=== PATIENT | female | born 1995 | race Caucasian/White ===

== ENCOUNTER 2017-11-05 10:33 | Emergency (ER) | payer MEDICAID ==
[~2017-11-05] VITALS: Ht 162.6 cm; Wt 57.6 kg
[2017-11-05 10:49] VITALS: BP 143/93
--- NOTE | 2017-11-05 10:49 | NUR ---
PT AMBULATED TO BED 12
--- NOTE | 2017-11-05 10:50 | NUR ---
22YO F TO ER FOR RIGHT EAR PAIN X1WK ---AWAKE ALERT AND ORIENTED TO PERSON , PLACE, TIME, AND EVENT. RINGING PAIN ; DENIES RECENT INJURY OR TRAUMA. NO DISCOLORATION OR DRAINAGE NOTED. LS CLEAR THROUGHOUT, BS ACTIVE X4 ALSO ADDS INTERMITTENT NAUSEA IN THE MORNINGS UPON AWAKENING X"MONTHS"also adds WILL CONTINUE TO MONITOR, PT POSITIONED FOR COMFORT, ER MD MADE AWARE. hx---denies rx---none--does not take control
--- NOTE | 2017-11-05 12:20 | NUR ---
Patient being evaluated by physician at bedside.
[2017-11-05 12:59] VITALS: BP 143/93
--- NOTE | 2017-11-05 13:00 | NUR ---
Patient discharged with v/s stable. Written and verbal after care instructions given and explained. Patient alert, oriented and verbalized understanding of instructions. Ambulatory with steady gait. All questions addressed prior to discharge. ID band removed. Patient advised to follow up with PMD. Rx of FLEXERIL, OTIC DROPS, AND MOTRIN given. Patient educated on indication of medication including possible reaction and side effects. Opportunity to ask questions provided and answered.
== END 2017-11-05 13:00 | disposition home or self-care (01) ==
LOC: MED 10:33
DX: B36.9 Superficial mycosis, unspecified (principal); H62.41 Otitis externa in other diseases classified elsewhere, right ear; R51 Headache; R10.13 Epigastric pain
CPT/HCPCS: 81002; 81025; 99283

== ENCOUNTER 2021-12-24 09:07 | Emergency (ER) | payer BC, OTHER ==
[~2021-12-24] VITALS: Ht 160 cm; Wt 62.1 kg
[2021-12-24 09:11] VITALS: BP 131/78
--- NOTE | 2021-12-24 09:21 | NUR ---
PT AMBULATED TO BATHROOM WITH STEADY GAIT
--- NOTE | 2021-12-24 09:40 | NUR ---
26YR OLD FEMALE BIB SELF C/O PAIN WITH URINATION X2 DAYS. FREQ/URGENCY WITH URINATION. SHARP NON BURNING PAIN. LLQ ABD PAIN TO L FLANK AREA. DENIES FEVER N/V. PAIN LEVEL 8/10. PT IS A&OX4. SKIN WARM DRY. HOB ELEVATED BED AT LOWEST POSITION. NKDA NO MED HX
[2021-12-24 10:54] LABS: APPEARANCE,URINE SL CLOUDY (CLEAR); BILIRUBIN,URINE 2+ (NEGATIVE); BLOOD, URINE NEGATIVE (NEGATIVE); COLOR,URINE ORANGE (YELLOW); LEUKOCYTE ESTERASE ,URINE NEGATIVE (NEGATIVE); NITRITE, URINE POSITIVE (NEGATIVE); PH,URINE 6.5 (5.0-9.0); UGLUCOSE TRACE (NEGATIVE)
[2021-12-24 11:18] LABS: RBC,URINE 0-5 /HPF (0-5); WBC,URINE 0-5 /HPF (0-5)
[2021-12-24] MEDS ORDERED: CEPH-588 PO (11:26)
[2021-12-24 11:31] VITALS: BP 114/73
--- NOTE | 2021-12-24 11:31 | NUR ---
Patient discharged with v/s stable. Written and verbal after care instructions given and explained. Patient alert, oriented and verbalized understanding of instructions. Ambulatory with steady gait. All questions addressed prior to discharge. ID band removed. Patient advised to follow up with PMD. Rx of KEFLEX given.
--- NOTE | 2021-12-24 11:37 | NUR ---
Chart checked and completed. The patient's care was reviewed and supervised by Dipti Alvarado RN.
== END 2021-12-24 11:31 | disposition home or self-care (01) ==
LOC: MED 09:07
DX: N39.0 Urinary tract infection, site not specified (principal)
CPT/HCPCS: 81001; 81025; 99283